=== PATIENT | male | born 1980 | race Asian ===

== ENCOUNTER 2020-06-30 11:40 | Emergency (ER) | payer OTHER ==
[~2020-06-30] VITALS: Ht 172.7 cm; Wt 63.5 kg
[2020-06-30 16:34] VITALS: BP 127/84
== END 2020-06-30 16:35 | disposition home or self-care (01) ==
LOC: ER 11:40
DX: R51.9 Headache, unspecified (principal); H20.9 Unspecified iridocyclitis; Z87.891 Personal history of nicotine dependence